=== PATIENT | female | born 1970 | race Caucasian/White ===

== ENCOUNTER 2019-09-14 08:36 | Emergency (ER) | payer SELFPAY ==
[2019-09-14] MEDS ORDERED: NS 0.9% 1000 ML** 1,000 ML IV ONE (09:19)
--- NOTE | 2019-09-14 09:20 | ED ---
GI/ HPI - HPI Summary HPI Summary: This patient is a 49 year old F with a hx of DM and mild CKD presenting to ED with a chief complaint of urinary frequency and flank pain since a week ago. The flank pain is present on both sides, but is worse on the left side. She denies pain/burning while urinating. She believes she has a UTI, so she took 4 days worth of Augmentin that she had on her, but this did not relieve her symptoms. She reports she recently drove 1300 miles in two days, getting out only to use the bathroom. The patient rates the pain 5/10 in severity. Symptoms aggravated by nothing. Symptoms alleviated by nothing. Patient reports nausea. Patient denies vomiting, fever. - History of Current Complaint Chief Complaint: EDUrogenitalProblems Time Seen by Provider: 09/14/19 08:47 Stated Complaint: POSS KIDNEY INFECTION PER PT Hx Obtained From: Patient Onset/Duration: Started Weeks Ago - 1 week, Still Present Timing: Constant, Lasting Weeks - 1 week Severity: Moderate Current Severity: Moderate Pain Intensity: 5 Location of Pain: Flank Associated Signs and Symptoms: Positive: Nausea, Flank Pain. Negative: Vomiting , Fever, Dysuria Aggravating Factor(s): Nothing Alleviating Factor(s): Nothing - Allergy/Home Medications Allergies/Adverse Reactions: Allergies Allergy/AdvReac Type Severity Reaction Status Date / Time azithromycin [From Zithromax] Allergy Vomiting Verified 09/14/19 08:43 erythromycin base Allergy Vomiting Verified 09/14/19 08:43 metoclopramide [From Reglan] Allergy Anxiety Verified 09/14/19 08:43 Home Medications: Home Medications Atorvastatin* [Lipitor*] 10 mg PO QPM 09/14/19 [History Confirmed 09/14/19] Insulin Lispro [Humalog] 1 unit SQ SEE INSTRUCTIONS 09/14/19 [History Confirmed 09/14/19] Insulin NPH Human Isophane [Novolin N] 10 unit SQ BEDTIME 09/14/19 [History Confirmed 09/14/19] Insulin NPH Human Isophane [Novolin N] 15 unit SQ QAM 09/14/19 [History Confirmed 09/14/19] Lisinopril/Hydrochlorothiazide [Lisinopril-Hctz 10-12.5 mg Tab] 1 tab PO DAILY 09/14/19 [History Confirmed 09/14/19] Norethindrone-E.estradiol-Iron [Lo Loestrin Fe 1-10 Tablet] 1 each PO DAILY 01/01 [History Confirmed 09/14/19] Ondansetron ODT TAB* [Zofran 4 MG Odt TAB*] 4 mg PO Q6H PRN 09/14/19 [History Confirmed 09/14/19] metFORMIN* [Glucophage 1000 MG TAB *] 1,000 mg PO BID 09/14/19 [History Confirmed 09/14/19] PMH/Surg Hx/FS Hx/Imm Hx Previously Healthy: No Endocrine/Hematology History: Reports: Hx Diabetes - Type II GI History: Reports: Other GI Disorders - Gastroparesis, Hemangiomas in liver History: Reports: Other Problems/Disorders - Mild CKD, cyst in right kidney Musculoskeletal History: Reports: Hx Fibromyalgia - Surgical History Surgery Procedure, Year, and Place: Left ovary removal 2010. Infectious Disease History: No Infectious Disease History: Denies: Traveled Outside the [place] in Last 30 Days - Social History Alcohol Use: Rare Hx Substance Use: Yes Substance Use Type: Reports: Marijuana Hx Tobacco Use: No Smoking Status (MU): Never Smoked Tobacco Review of Systems Negative: Fever Positive: Nausea. Negative: Vomiting Positive: frequency, flank pain. Negative: burning, dysuria All Other Systems Reviewed And Are Negative: Yes Physical Exam - Summary Physical Exam Summary: Appearance: The patient is well-nourished in no acute distress and in no acute pain. Skin: The skin is warm and dry, and skin color reflects adequate perfusion. HEENT: The head is normocephalic and atraumatic. The pupils are equal and reactive. The conjunctivae are clear and without drainage. Nares are patent and without drainage. Mouth reveals moist mucous membranes, and the throat is without erythema and exudate. The external ears are intact. The ear canals are patent and without drainage. The tympanic membranes are intact. Neck: The neck is supple with full range of motion and non-tender. There are no carotid bruits. There is no neck vein distension. Respiratory: Chest is non-tender. Lungs are clear to auscultation and breath sounds are symmetrical and equal. Cardiovascular: Heart is regular rate and rhythm. There is no murmur or rub auscultated. There is no peripheral edema and pulses are symmetrical and equal. Abdomen: The abdomen is soft and non-tender. There are normal bowel sounds heard in all four quadrants and there is no organomegaly palpated. Musculoskeletal: Paralumbar tenderness, left worse than right. Neurological: Patient is alert and oriented to person, place and time. The patient has symmetrical motor strength in all four extremities. Cranial nerves are grossly intact. Deep tendon reflexes are symmetrical and equal in all four extremities. Psychiatric: The patient has an appropriate affect and does not exhibit any anxiety or depression. Triage Information Reviewed: Yes Vital Signs On Initial Exam: Initial Vitals Temp Pulse Resp BP Pulse Ox 96.3 F 75 16 187/94 99 09/14/19 08:39 09/14/19 08:39 09/14/19 08:39 09/14/19 08:39 09/14/19 08:39 Vital Signs Reviewed: Yes Procedures - Sedation Patient Received Moderate/Deep Sedation with Procedure: No Diagnostics - Vital Signs Vital Signs Temp Pulse Resp BP Pulse Ox 09/14/19 08:39 96.3 F 75 16 187/94 99 - Laboratory Result Diagrams: 09/14/19 09:52 09/14/19 09:52 Lab Statement: Any lab studies that have been ordered have been reviewed, and results considered in the medical decision making process. Re-Evaluation - Re-Evaluation First Eval Re-Evaluation Time: 10:52 Comment: Discussed results with patient. Patient will be discharged home with dx of low back pain. Patient understands and agrees with this plan. GIGU Course/Dx - Course Course Of Treatment: Ms. Benoit presented with about a week of bilateral flank pain. It's worse with movement and has gotten significantly worse after a long drive in the last couple of days. She woke up this morning with a lot of pain when she moved around. She's been urinating frequently and is concerned this could be a urinary tract infection as she has had those without dysuria in the past. She urinates a normal amount when she goes and has no urgency. She was nontoxic in appearance is stable vitals and quite tender bilaterally in her back. She was tender even to light touch and this is not CVA tenderness. Labs are unremarkable with a urine clean catch showing epithelial cells as well as a trace of red blood cells and white blood cells. My interpretation at this is likely contaminated specimen. I think this is a musculoskeletal problem. The possibility of a kidney stone has not been ruled out but clinically this does not act like that. I think she aggravated some back pain with the drive and recommended symptomatic treatment. She has Aleve at home. - Diagnoses Provider Diagnoses: Low back pain Discharge ED - Sign-Out/Discharge Documenting (check all that apply): Patient Departure - Discharge - Discharge Plan Condition: Stable Disposition: HOME Patient Education Materials: Back Pain (ED) Referrals: [facility] [Outside] Additional Instructions: Please follow-up with your primary care physician in 2-3 days. RETURN TO THE ER FOR WORSENING OR CHANGING SYMPTOMS. - Billing Disposition and Condition Condition: STABLE Disposition: Home - Attestation Statements Document Initiated by Kristyibe: Yes Documenting Scribe: Johnathan Morrissey Provider For Whom Litzy is Documenting (Include Credential): Hossein Bella MD Scribe Attestation: Johnathan Valdez, scribed for Hossein Bella MD on 09/14/19 at 1129. Scribe Documentation Reviewed: Yes Provider Attestation: The documentation as recorded by the Johnathan jhaveri accurately reflects the service I personally performed and the decisions made by me, Hossein Bella MD Status of Scribe Document: Viewed
[2019-09-14 10:00] LABS: ABS Basophils 0.1 10^3/ul (0-0.2); ABS Eosinophils 0.2 10^3/ul (0-0.6); ABS Lymphocytes 2.3 10^3/ul (1.0-4.8); ABS Monocytes 0.6 10^3/ul (0-0.8); ABS Neutrophils 6.8 10^3/ul (1.5-7.7); Eosinophil % 2.1 %; Hematocrit 40 % (35-47); Hemoglobin 13.2 g/dL (12.0-16.0); Lymphocyte % 22.9 %; Mean Corpuscular HGB Conc 33 g/dL (31-36); Mean Corpuscular Hemoglobin 28 pg (27-31); Mean Corpuscular Volume 84 fL (80-97); Platelet Count 347 10^3/uL (150-450); Red Blood Count 4.75 10^6 /uL (3.70-4.87); Red Cell Distribution Width 14 % (10-15); White Blood Count 9.9 10^3/uL (3.5-10.8)
[2019-09-14 10:12] LABS: Urine Appearance Cloudy; Urine Bacteria Absent (Absent); Urine Bilirubin Negative (Negative); Urine Blood Negative (Negative); Urine Color Yellow; Urine Glucose Negative (Negative); Urine Ketones Negative (Negative); Urine Nitrite Negative (Negative); Urine Protein Negative (Negative); Urine Red Blood Cell Trace(0-2/hpf) (Absent); Urine Specific Gravity 1.021 (1.010-1.030); Urine Squamous Epithelial Cell Present (Absent); Urine Urobilinogen Negative (Negative); Urine White Blood Cell Trace(0-5/hpf) (Absent)
[2019-09-14 10:20] LABS: Albumin 3.5 g/dL (3.2-5.2); Albumin/Globulin Ratio 1.3 (1-3); BUN/Creatinine Ratio 9.9 (8-20); C Reactive Protein 11.96 mg/L (<8.01); Calcium 8.4 mg/dL (8.6-10.3); Globulin 2.8 g/dL (2-4); Total Bilirubin 0.5 mg/dL (0.2-1.0); Total Protein 6.3 g/dL (6.4-8.9)
[2019-09-14 11:00] VITALS: BP 158/73
== END 2019-09-14 11:07 | disposition home or self-care (01) ==
LOC: ED 08:36
DX: M54.5 Low back pain (principal); E11.22 Type 2 diabetes mellitus with diabetic chronic kidney disease; N18.9 Chronic kidney disease, unspecified; Z90.721 Acquired absence of ovaries, unilateral; Z79.4 Long term (current) use of insulin; Z79.899 Other long term (current) drug therapy; Z88.1 Allergy status to other antibiotic agents; Z88.8 Allergy status to other drugs, medicaments and biological substances
CPT/HCPCS: 36415; 80053; 81003; 82803; 83605; 85025; 86140; 87086; 96360; 99283